=== PATIENT | female | born 1960 | race Caucasian/White ===

== ENCOUNTER 2023-03-07 06:31 | Outpatient (CLI) | payer MEDICARE, SELFPAY ==
[2023-03-07 07:39] LABS: Anion Gap 3 mmol/L (8-16); Blood Urea Nitrogen 11 mg/dL (7-17); Calcium 8.2 mg/dL (8.4-10.2); Carbon Dioxide 31 mmol/L (22-30); Chloride 107 mmol/L (98-107); Cholesterol 199 mg/dL (0-200); Estimated Glomerular Filt Rate > 60; Glucose 99 mg/dL (65-110); HDL Direct 52 mg/dL; Potassium 3.3 mmol/L (3.4-5.0); Sodium 141 mmol/L (137-145); Triglycerides 144 mg/dL (<150)
[2023-03-07 07:49] LABS: LDL Cholesterol Direct 121 mg/dL
== END 2023-03-07 06:32 | disposition home or self-care (01) ==
PROVIDERS: PCP Family Medicine; Visit Provider Family Medicine
DX: I12.9 Hypertensive chronic kidney disease with stage 1 through stage 4 chronic kidney disease, or unspecified chronic kidney disease (principal); N18.2 Chronic kidney disease, stage 2 (mild); E03.9 Hypothyroidism, unspecified; E78.2 Mixed hyperlipidemia
CPT/HCPCS: 36415; 80048; 80061; 84443

== ENCOUNTER 2023-09-11 13:42 | Observation (INO) | payer MEDICARE, SELFPAY ==
--- NOTE | ~2023-09-11 | XR_ITS ---
EXAMINATION: XR chest 1V portable Exam Date/Time: 09/11/2023 19:30 MATERIAL COMBINER HISTORY: cough, vomiting, covid SAID SHE IS HEAVY SMOKER Comparison: None. RESULT: Lines, tubes, and devices: None. Lungs and pleura: Streaky right basilar opacities with minimal right costophrenic angle blunting. Cardiomediastinal silhouette: Unremarkable. Other: No acute osseous or upper abdominal finding. IMPRESSION: Right basilar atelectasis/consolidation. Possible small right pleural effusion. Reviewed, dictated and finalized at location K. [facility]IAL COM[facility]ER
[2023-09-11 13:46] VITALS: BP 148/94; PULSE 117; RESP 20; TEMP 36.7; O2SAT 100
--- NOTE | 2023-09-11 13:51 | ED.NAVMDI ---
HPI - Nausea/Vomiting/Diarrhea General Chief complaint: Nausea/Vomiting/Diarrhea <Ana Laura Jarvis PA-C - Last Filed: 09/12/23 09:23> Stated complaint: vomiting <JUAN MANUEL Mariscal Last Filed: 09/12/23 09:23> Time Seen by Provider: 09/11/23 17:06 <JUAN MANUEL Mariscal Last Filed: 09/12/23 09:23> Source: patient <JUAN MANUEL Mariscal Last Filed: 09/12/23 09:23> Mode of arrival: ambulatory <JUAN MANUEL Mariscal Last Filed: 09/12/23 09:23> Limitations: no limitations <JUAN MANUEL Mariscal Last Filed: 09/12/23 09:23> History of Present Illness HPI Narrative: This is a 63-year-old female that presents to the emergency department for nausea and vomiting. Ongoing over the last several weeks. Reports she has not been able to keep much down. Also reports a headache this morning. She tried to take pain medication but ended up vomiting. Denies focal numbness or weakness. <JUAN MANUEL Mariscal Last Filed: 09/12/23 09:23> This is a 63-year-old female that presents to the emergency department for nausea and vomiting. Ongoing over the last several weeks. Reports she has not been able to keep much down. Also reports a headache this morning. She tried to take pain medication but ended up vomiting. Denies focal numbness or weakness. Sx's worsening over last 3 days. Also reports cough and congestion for last 3 weeks. Currently c/o burning pain in her esophagus. Denies fevers, sob, diarrhea, abdominal pain. Has seen her PCP for this over the last several weeks, but did not have any lab or imaging performed. <JUAN MANUEL Serrano Last Filed: 09/11/23 20:20> Related Data Home medications: Home Medications Medication Instructions Recorded Confirmed atorvastatin 20 mg tablet 40 mg PO DAILY 09/11/23 09/11/23 levothyroxine 75 mcg tablet 75 mcg PO QAM 09/11/23 09/11/23 sertraline 100 mg tablet 100 mg PO HS 09/11/23 09/11/23 <Ana Laura Jarvis PA-C - Last Filed: 09/12/23 09:23> Allergies/Adverse reactions: Allergies Allergy/AdvReac Type Severity Reaction Status Date / Time No Known Allergies Allergy Verified 09/11/23 17:20 <Ana Laura Jarvis PA-C - Last Filed: 09/12/23 09:23> Review of Systems Review of Systems: CONSTITUTIONAL: Denies fever EYES: Denies visual changes GASTROINTESTINAL: Reports abdominal pain, nausea, vomiting. Denies diarrhea. NEUROLOGIC: Reports headache. Denies numbness, or weakness. <Ana Laura Jarvis PA-C - Last Filed: 09/12/23 09:23> CONSTITUTIONAL: Denies fever EYES: Denies visual changes GASTROINTESTINAL: Reports nausea, vomiting. Denies diarrhea. NEUROLOGIC: Reports headache. Denies numbness, or weakness. <Nani Frias PA-C - Last Filed: 09/11/23 20:20> All systems reviewed & are unremarkable except as noted in HPI and below <Ana Laura Jarvis PA-C - Last Filed: 09/12/23 09:23> FOR[facility]LY [facility], [facility] Past Medical History Medical History: Medical History History of hyperlipidemia History of hypertension History of hypothyroidism <Ana Laura Jarvis PA-C - Last Filed: 09/12/23 09:23> Social History Social History: Social History Smoking packs per day: 2 Smoking cigarettes per day: 40.0 Smoking status: Current every day smoker Tobacco type: cigarettes Additional smoking assessment comments: 2-3 packs a day Alcohol intake: former Substance use: never Do You Feel Safe in your Home?: Yes Lack of Transportation: No Lack of Food: Never True Current Housing: I Have Housing Concerned About Future Housing: No Difficulty Paying Gas/Electric Bills: No Difficulty Paying for Meds: No Currently Unemployed: No Education: High School Diploma/GED Difficulty w/ Childcare or Family Care: No Spiritual care concerns: No <Ana Laura Jarvis PA-C - Last Filed: 09/12/23
[2023-09-11 14:10] LABS: Basophils Percent Auto 0.5 % (0.2-1.2); Hematocrit 42.5 % (37.0-47.0); Hemoglobin 14.7 g/dL (12.0-15.0); Immature Granulocyte Absolute 0.02 K/mm3 (0.00-0.031); Immature Granulocyte Percent A 0.4 % (0-0.5); Lymphocytes Absolute Auto 0.76 K/mm3 (0.9-3.2); Lymphocytes Percent Auto 13.8 % (18.3-44.2); Mean Corpuscular HGB Conc 34.6 g/dl (32-36); Mean Corpuscular Hemoglobin 30.8 pg (26-34); Mean Corpuscular Volume 89.1 fl (80-100); Mean Platelet Volume 10.6 fl (7.4-10.4); Monocytes Absolute Auto 0.7 K/mm3 (0.1-0.6); Neutrophils Percent Auto 73.3 % (45.5-73.1); Platelet Count Result 263 k/mm3 (150-375); Red Blood Count 4.77 M/mm3 (4.2-5.4); Red Cell Distribution Width 12.9 % (11.5-14.5); White Blood Count 5.5 K/mm3 (4.5-10.0)
[2023-09-11 14:24] LABS: Albumin Level 4.7 g/dL (3.5-5.1); Alkaline Phosphatase 135 U/L (38-126); Anion Gap 14 mmol/L (8-16); Aspartate Amino Transferase 51 U/L (14-36); Blood Urea Nitrogen 11 mg/dL (7-17); Calcium 8.9 mg/dL (8.4-10.2); Carbon Dioxide 24 mmol/L (22-30); Chloride 84 mmol/L (98-107); Estimated CRCL calculation 53 ml/min; Estimated Glomerular Filt Rate > 60; Glucose 103 mg/dL (65-110); Lipase 154 U/L (23-300); Potassium 3.9 mmol/L (3.4-5.0); Sodium 122 mmol/L (137-145)
[2023-09-11 14:31] LABS: Appearance Urine Cloudy (Clear); Bacteria Urine Rare /hpf; Bilirubin Urine Negative (Negative); Blood Urine Negative (Negative); Color Urine Yellow (Yellow); Glucose Urine UA Negative (Negative); Ketones Urine 2+ mg/dL (Negative); Leukocyte Esterase Ur Negative LEU/UL (Negative); Nitrate Urine Negative (Negative); Protein Urine Trace mg/dL (Negative); RBC Urine 0-2 /hpf (0-2); Specific Grav Ur 1.023 (1.001-1.035); Squamous Epithelial Cell Urine Moderate /hpf (Few); pH Urine 5.5 (5.0-9.0)
[2023-09-11 14:35] LABS: Alanine Aminotransferase 43 U/L (6-35)
[2023-09-11 14:39] LABS: Add Urine Microscopic? YES
[2023-09-11 15:40] LABS: Influenza A QL RT-PCR Negative (Negative); Influenza B QL RT-PCR Negative (Negative); SARS-CoV-2 RNA PCR Positive (Negative)
[2023-09-11 17:20] LABS: Magnesium 1.7 mg/dL (1.6-2.3)
[2023-09-11] MEDS: SODIUM CHLORIDE 0.9% IV 1,000 ML 999 ML IV CONT ×2 (17:21→19:29)
[2023-09-11 17:23] VITALS: BP 134/70; PULSE 77; RESP 14; O2SAT 100
[2023-09-11] MEDS: ONDANSETRON INJ 4 MG/2 ML VIAL IV PUSH (18:19)
[2023-09-11 18:23] VITALS: BP 128/63; PULSE 74; RESP 18; O2SAT 97
--- NOTE | 2023-09-11 18:53 | ECG_ITS ---
Measurements Intervals [place] Rate: 73 P: 64 WV: 150 QRS: -25 QRSD: 98 T: 43 QT: 404 QTc: 446 Interpretive Statements SINUS RHYTHM NONSPECIFIC T-WAVE ABNORMALITY LEFT AXIS DEVIATION ABNORMAL ECG NO PREVIOUS ECG AVAILABLE FOR COMPARISON Electronically Signed On 09-12-2023 10:35:52 [employer] by Osvaldo Bingham M.D.
[2023-09-11] MEDS: FAMOTIDINE 20 MG/2 ML VIAL IV PUSH (19:01)
[2023-09-11 19:05] LABS: Creatine Kinase 38 U/L (30-135)
[2023-09-11 19:18] LABS: Troponin I < 0.012 ng/mL (0.000-0.034)
[2023-09-11 20:17] VITALS: BP 147/77; PULSE 75; RESP 16; O2SAT 97
--- NOTE | 2023-09-11 20:24 | PM.IMHP ---
H&P: HPI History of Present Illness Date/Time: 09/11/23 20:24 Chief Complaint: Nausea and vomiting/unable to keep food and drink down for over 1 month Narrative: ?A 63-year-old female that presents to the emergency department for nausea and vomiting.? Ongoing over the last several weeks.? Reports she has not been able to keep much down.? Also reports a headache this morning.? She tried to take pain medication but ended up vomiting.? Denies focal numbness or weakness.Sx's worsening over last 3 days. Also reports cough and congestion for last 3 weeks. Currently c/o burning pain in her esophagus. Denies fevers, sob, diarrhea, abdominal pain. Has seen her PCP for this over the last several weeks, but did not have any lab or imaging performed. Patient was evaluated in the ER and found to have sodium level of 122, and also COVID-19 infection. She is not hypoxic, does not have shortness of breath, and improved significantly with IV hydration. I was consulted to admit this patient for observation considering low level of sodium. During my encounter with this patient she feels so much better, has not had any vomiting since arrival to the ED and also stated that body pain has improved significantly Review of Systems Review of Systems: All systems reviewed & are unremarkable except as noted in HPI and below PMFSH Past Medical History Medical History History of hyperlipidemia History of hypertension History of hypothyroidism Social History Social History Smoking status: Current every day smoker Meds Home Medications and Allergies Allergies Allergy/AdvReac Type Severity Reaction Status Date / Time No Known Allergies Allergy Verified 09/11/23 17:20 Vital Signs Vital Signs - 24 hr 09/11/23 13:46 09/11/23 17:23 09/11/23 18:23 Temperature 98.0 F Pulse Rate 117 H 77 74 Respiratory Rate 20 14 18 Blood Pressure 148/94 H 134/70 128/63 Pulse Oximetry 100 100 97 Oxygen Delivery Room Air 09/11/23 20:17 Temperature Pulse Rate 75 Respiratory Rate 16 Blood Pressure 147/77 H Pulse Oximetry 97 Oxygen Delivery Exam Narrative: GENERAL: Well-appearing, well-nourished,?not in distress HEAD: Normocephalic, atraumatic. ENT: EOMI, dry oral mucosa, CHEST: Clear to auscultation. No respiratory distress. No wheezes rales or rhonchi HEART: Regular rate and rhythm. No murmur heard. Normal peripheral pulses. ABDOMEN: Soft, nontender, nondistended, normal active bowel sounds.? No focal tenderness on abdomen. EXTREMITIES: Normal range of motion. No edema. SKIN: Warm, dry, no rash. NEURO: No focal deficits. Alert and oriented x3. Normal gait PSYCH: Normal mood and affect H&P: Results Labs Labs: Short CBC 09/11/23 Range/Units 13:59 WBC 5.5 (4.5-10.0) K/mm3 Hgb 14.7 (12.0-15.0) g/dL Hct 42.5 (37.0-47.0) % Plt Count 263 (150-375) k/mm3 BMP 09/11/23 13:59 Sodium 122 L Potassium 3.9 Chloride 84 L Carbon Dioxide 24 BUN 11 Creatinine 0.90 Glucose 103 Calcium 8.9 Cardiac Enzymes 09/11/23 Range/Units 13:59 Total Creatine Kinase 38 (30-135) U/L Troponin I < 0.012 (0.000-0.034) ng/mL Liver Function 09/11/23 Range/Units 13:59 Total Bilirubin 1.0 (0.2-1.3) mg/dL AST 51 H (14-36) U/L ALT 43 H (6-35) U/L Alkaline Phosphatase 135 H (38-126) U/L Albumin 4.7 (3.5-5.1) g/dL Urine 09/11/23 Range/Units 14:06 Urine Color Yellow (Yellow) Urine Appearance Cloudy H (Clear) Urine pH 5.5 (5.0-9.0) Ur Specific Bernard 1.023 (1.001-1.035) Urine Protein Trace (Negative) mg/dL Urine Glucose (UA) Negative (Negative) mg/dL ECG Interpretation: Normal sinus rhythm, regular rate, normal NH, left axis deviation, normal QRS, QT/QTC Imaging Chest x-ray: Radiologist's impression: PRESSION: Right basi
[2023-09-11 20:26] VITALS: BP 149/79; PULSE 84; RESP 20; O2SAT 98
[2023-09-11 20:31] LABS: Anion Gap 5 mmol/L (8-16); Blood Urea Nitrogen 10 mg/dL (7-17); Calcium 7.2 mg/dL (8.4-10.2); Carbon Dioxide 23 mmol/L (22-30); Chloride 96 mmol/L (98-107); Estimated CRCL calculation 67 ml/min; Estimated Glomerular Filt Rate > 60; Glucose 78 mg/dL (65-110); Potassium 4.1 mmol/L (3.4-5.0); Sodium 124 mmol/L (137-145)
[2023-09-11] MEDS: SODIUM CHLORIDE 0.9% IV 1,000 ML 150 ML IV CONT (20:48)
--- NOTE | 2023-09-11 22:31 | ADMGEN ---
This patient, Trupti Quinones, was admitted to [address] [facility] Surg Room 313-01. Patient/family oriented to hospital policies and general routines including ID bracelet, bed and alarms, visiting hours, pain management, procedures, bathroom and other care routines, personal items, smoking policy, room service/diet, and visiting hours. Information on how to activate the Rapid Response Team has been discussed. Patient/Family are encouraged to report perceived risks to care and to ask questions if they do not understand what they are told or what they should do.
[2023-09-11 23:17] LABS: Basophils Percent Auto 0.3 % (0.2-1.2); Hematocrit 36.7 % (37.0-47.0); Hemoglobin 12.3 g/dL (12.0-15.0); Immature Granulocyte Absolute 0.01 K/mm3 (0.00-0.031); Immature Granulocyte Percent A 0.3 % (0-0.5); Lymphocytes Absolute Auto 0.84 K/mm3 (0.9-3.2); Lymphocytes Percent Auto 21.9 % (18.3-44.2); Mean Corpuscular HGB Conc 33.5 g/dl (32-36); Mean Corpuscular Hemoglobin 30.8 pg (26-34); Mean Platelet Volume 10.8 fl (7.4-10.4); Monocytes Absolute Auto 0.5 K/mm3 (0.1-0.6); Neutrophils Absolute Auto 2.5 K/mm3 (1.3-6.7); Neutrophils Percent Auto 65.5 % (45.5-73.1); Platelet Count Result 219 k/mm3 (150-375); Red Blood Count 3.99 M/mm3 (4.2-5.4); Red Cell Distribution Width 12.9 % (11.5-14.5); White Blood Count 3.8 K/mm3 (4.5-10.0)
[2023-09-12] MEDS: SERTRALINE HCL 50 MG TABLET 100 MG PO ×2 (02:05→21:14)
[2023-09-12] MEDS: LEVOTHYROXINE SODIUM 75 MCG TABLET PO (05:54)
[2023-09-12] MEDS: SODIUM CHLORIDE 0.9% IV 1,000 ML 150 ML IV CONT ×3 (05:55→21:14)
[2023-09-12 06:00] VITALS: BP 139/82; PULSE 80; RESP 20; TEMP 36.6; O2SAT 99
[2023-09-12] MEDS: FAMOTIDINE 20 MG/2 ML VIAL IV PUSH ×2 (08:21→21:14)
[2023-09-12] MEDS: ENOXAPARIN 40 MG/0.4 ML SYRINGE SUB-Q (08:21)
[2023-09-12] MEDS: ATORVASTATIN 40 MG TABLET PO (08:22)
[2023-09-12] MEDS: lisinopriL 10 MG TABLET PO (08:22)
[2023-09-12] MEDS: hydroCHLOROthiazide 12.5 MG CAPSULE PO (08:22)
[2023-09-12 14:00] VITALS: BP 138/75; PULSE 69; RESP 18; TEMP 37; O2SAT 98
--- NOTE | 2023-09-12 15:48 | PM.IMPN ---
Progress Note: A&P Assessment and Plan (1) Dehydration: Code(s): E86.0 - Dehydration Status: Acute (2) Acute COVID-19: Code(s): U07.1 - COVID-19 Status: Acute (3) Viral gastroenteritis: Code(s): A08.4 - Viral intestinal infection, unspecified Status: Acute (4) Acute hyponatremia: Code(s): E87.1 - Hypo-osmolality and hyponatremia Status: Acute (5) Nausea and vomiting: Qualifiers: Vomiting type: unspecified Qualified Code(s): R11.2 - Nausea with vomiting, unspecified Code(s): R11.2 - Nausea with vomiting, unspecified Status: Acute (6) Hyponatremia: Code(s): E87.1 - Hypo-osmolality and hyponatremia Status: Acute (7) COVID-19: Code(s): U07.1 - COVID-19 Status: Acute Plan Admit patient to medical unit under full inpatient status COVID-19 isolation precautions Admitting resident care provider note said patient may be started on IV remdesivir which was not done in the ER Patient is clinically stable and not requiring oxygen hence do not qualify for dexamethasone or remdesivir Patient started on supplemental treatment with zinc, vitamin-C and vitamin-D She had moderately severe hyponatremia at 122 which is slowly improving with aggressive IV hydration Cut down on normal saline from 150-100 cc/hour Hold off on home diuretic Strict input and output monitoring Renal functions are stable Consider close monitoring of D-dimer and CRP as COVID-19 monitoring markers as needed Advised patient to relax, calm down and take things 1 at a time Consider oral anti anxiety meds if needed PT OT evaluation and treatment ordered DC planning in next 24-48 hours if she remains stable and electrolytes are improved ? Patient seen and examined at bedside during my morning rounds ? Collaborated with patient's nurse at the bedside in detail and addressed all concerns ? Labs, electrolytes, radiology, investigations and test results reviewed ? Consult/Nursing/Ancilliary notes on the chart reviewed and appreciated ? Spoke with patient/family at the bedside and answered all the questions that they had Repeat labs in a.m. Electrolyte replacement as per protocol. Patient will be monitored very closely on the floor. Further recommendations as per the hospital course. I am signing off. Patient's medical care will be taken over by my covering hospitalist attending in am. Time Spent With Patient Time with patient: 25 - 35 minutes Subjective Date/time seen: 09/12/23 15:48 Interval history: Patient seen and evaluated at bedside. Still feels tired and fatigued. Complaints of of poor intake over the last few weeks. Nausea vomiting has improved. She has anxiety Review of Systems Review of Systems: 14 systems were reviewed with pertinent positives and negatives per HPI. Except as documented in the HPI/progress notes, all other systems were reviewed and are negative. All systems reviewed & are unremarkable except as noted in HPI and below Exam Narrative: PHYSICAL EXAMINATION: Vital signs: Please see the chart General physical exam: Patient lying in bed, appears anxious, tired and fatigued Head/eyes: Atraumatic, EOMI, PERRLA ENT: +dry mucous membranes, nasal passages clear Neck: Supple, full range of motion, trachea midline CVS: S1 + S2, regular rate and rhythm, no murmurs Respiratory: Bilaterally fair air entry in both lung garcia, mild B/L crackles, symmetric chest expansion, no distress Abdomen: Soft, non-tender, bowel sounds +ve, no organomegaly Extremities: No clubbing, no cyanosis, no edema, no calf tenderness Musculoskeletal: Moves all, adequate range of motion, no muscle spasms Skin: Warm, dry, no jaundice, no cyanosis Neurological: Awake, alert, oriented x 3, cranial nerves II-XII intact, no focal neurological deficits Psychiatric: +anxious mood, non suicidal Objective Data Vital Signs Vital Signs: Vital Signs - 24 hr 09/11/23 17:23 09/11/23
[2023-09-12 21:05] VITALS: BP 106/69; PULSE 75; RESP 16; TEMP 36.4; O2SAT 97
[2023-09-13 04:53] VITALS: BP 130/76; PULSE 85; RESP 16; TEMP 36.3; O2SAT 96
[2023-09-13] MEDS: LEVOTHYROXINE SODIUM 75 MCG TABLET PO (06:15)
[2023-09-13 07:46] LABS: Basophils Percent Auto 0.5 % (0.2-1.2); Eosinophils Percent Auto 0.3 % (0-4.4); Hematocrit 34.8 % (37.0-47.0); Hemoglobin 11.3 g/dL (12.0-15.0); Immature Granulocyte Absolute 0.01 K/mm3 (0.00-0.031); Immature Granulocyte Percent A 0.3 % (0-0.5); Lymphocytes Percent Auto 27.7 % (18.3-44.2); Mean Corpuscular HGB Conc 32.5 g/dl (32-36); Mean Corpuscular Hemoglobin 30.6 pg (26-34); Mean Corpuscular Volume 94.3 fl (80-100); Mean Platelet Volume 11.1 fl (7.4-10.4); Monocytes Absolute Auto 0.5 K/mm3 (0.1-0.6); Monocytes Percent Auto 12.3 % (2.6-8.5); Neutrophils Absolute Auto 2.3 K/mm3 (1.3-6.7); Neutrophils Percent Auto 58.9 % (45.5-73.1); Platelet Count Result 229 k/mm3 (150-375); Red Blood Count 3.69 M/mm3 (4.2-5.4); Red Cell Distribution Width 13.7 % (11.5-14.5)
[2023-09-13 07:51] LABS: Anion Gap 4 mmol/L (8-16); Blood Urea Nitrogen 4 mg/dL (7-17); Calcium 7.5 mg/dL (8.4-10.2); Carbon Dioxide 24 mmol/L (22-30); Chloride 109 mmol/L (98-107); Estimated CRCL calculation 67 ml/min; Estimated Glomerular Filt Rate > 60; Glucose 123 mg/dL (65-110); Magnesium 1.9 mg/dL (1.6-2.3); Phosphorus 2.5 mg/dL (2.5-4.5); Potassium 3.9 mmol/L (3.4-5.0); Sodium 137 mmol/L (137-145)
--- NOTE | 2023-09-13 08:33 | PM.IMPN ---
Progress Note: A&P Assessment and Plan (1) Dehydration: Code(s): E86.0 - Dehydration Status: Acute (2) Acute COVID-19: Code(s): U07.1 - COVID-19 Status: Acute (3) Viral gastroenteritis: Code(s): A08.4 - Viral intestinal infection, unspecified Status: Acute (4) Acute hyponatremia: Code(s): E87.1 - Hypo-osmolality and hyponatremia Status: Acute (5) Nausea and vomiting: Qualifiers: Vomiting type: unspecified Qualified Code(s): R11.2 - Nausea with vomiting, unspecified Code(s): R11.2 - Nausea with vomiting, unspecified Status: Acute (6) Hyponatremia: Code(s): E87.1 - Hypo-osmolality and hyponatremia Status: Acute (7) COVID-19: Code(s): U07.1 - COVID-19 Status: Acute Plan Admit patient to medical unit under full inpatient status COVID-19 infection not requiring oxygen not qualify for remdesivir Patient started on supplemental treatment with zinc, vitamin-C and vitamin-D add dexamethasone 6 mg daily p.o. Hyponatremia She had moderately severe hyponatremia at 122 Corrected with aggressive IV hydration Received normal saline from 150-100 cc/hour Hold off on home diuretic Strict input and output monitoring Renal functions are stable Hyponatremia corrected DC normal saline IV Consider close monitoring of D-dimer and CRP as COVID-19 monitoring markers as needed Advised patient to relax, calm down and take things 1 at a time Consider oral anti anxiety meds if needed PT OT evaluation and treatment ordered Anxiety Possible due to typical withdrawal Provide nicotine patch, and Xanax p.o. as needed DC planning in next 24-48 hours if she remains stable and electrolytes are improved Subjective Date/time seen: 09/13/23 08:34 Interval history: Patient seen and evaluated at bedside. Patient feels better today still has a cough, nausea vomiting has improved. She has anxiety Exam Narrative: PHYSICAL EXAMINATION: Vital signs: Please see the chart General physical exam: Patient lying in bed, appears anxious, tired and fatigued Head/eyes: Atraumatic, EOMI, PERRLA ENT: +dry mucous membranes, nasal passages clear Neck: Supple, full range of motion, trachea midline CVS: S1 + S2, regular rate and rhythm, no murmurs Respiratory: Bilaterally fair air entry in both lung garcia, mild B/L crackles, symmetric chest expansion, no distress Abdomen: Soft, non-tender, bowel sounds +ve, no organomegaly Extremities: No clubbing, no cyanosis, no edema, no calf tenderness Musculoskeletal: Moves all, adequate range of motion, no muscle spasms Skin: Warm, dry, no jaundice, no cyanosis Neurological: Awake, alert, oriented x 3, cranial nerves II-XII intact, no focal neurological deficits Psychiatric: +anxious mood, non suicidal Objective Data Vital Signs Vital Signs: Vital Signs - 24 hr 09/12/23 14:00 09/12/23 21:05 09/12/23 20:00 Temperature 98.6 F 97.5 F L Pulse Rate 69 75 Respiratory Rate 18 16 Blood Pressure 138/75 106/69 Pulse Oximetry 98 97 Oxygen Delivery Room Air 09/13/23 04:53 Temperature 97.4 F L Pulse Rate 85 Respiratory Rate 16 Blood Pressure 130/76 Pulse Oximetry 96 Oxygen Delivery Intake/Output Intake/Output: Intake & Output 09/10/23 09/11/23 09/12/23 09/13/23 23:59 23:59 23:59 23:59 Intake Total 1999 4360 400 Balance 1999 4360 400 Meds/Results Medications: Active Medications Generic Name Dose Route Start Last Admin Trade Name Lorenzo PRN Reason Stop Dose Admin Acetaminophen 650 mg 09/11/23 19:59 Acetaminophen 325 Mg Tablet PO Q4H PRN Mild Pain (1-3) or Fever Atorvastatin Calcium 40 mg 09/12/23 09:00 09/12/23 08:22 Atorvastatin 40 Mg Tablet PO 40 mg DAILY CON Administration Enoxaparin Sodium 40 mg 09/12/23 09:00 09/12/23 08:21 Enoxaparin 40 Mg/0.4 Ml Syringe SUB-Q 40 mg DAILY CON Administration Famotidine 20 mg 09/12/23
[2023-09-13] MEDS: lisinopriL 10 MG TABLET PO (10:04)
[2023-09-13] MEDS: ATORVASTATIN 40 MG TABLET PO (10:04)
[2023-09-13] MEDS: ENOXAPARIN 40 MG/0.4 ML SYRINGE SUB-Q (10:05)
[2023-09-13] MEDS: FAMOTIDINE 20 MG/2 ML VIAL IV PUSH ×2 (10:06→21:06)
[2023-09-13 14:00] VITALS: BP 157/84; PULSE 73; RESP 18; TEMP 36; O2SAT 100
[2023-09-13] MEDS: SERTRALINE HCL 50 MG TABLET 100 MG PO (21:06)
[2023-09-13] MEDS: ALPRAZolam (*CRX) 0.5 MG TABLET PO (21:14)
[2023-09-13 22:00] VITALS: BP 170/82; PULSE 70; RESP 14; TEMP 36.2; O2SAT 100
[2023-09-14 06:00] VITALS: BP 125/88; PULSE 86; RESP 18; TEMP 36.3; O2SAT 96
[2023-09-14] MEDS: LEVOTHYROXINE SODIUM 75 MCG TABLET PO (06:10)
[2023-09-14 06:55] LABS: Basophils Percent Auto 0.5 % (0.2-1.2); Eosinophils Percent Auto 0.5 % (0-4.4); Hematocrit 38.3 % (37.0-47.0); Hemoglobin 12.4 g/dL (12.0-15.0); Immature Granulocyte Absolute 0.01 K/mm3 (0.00-0.031); Immature Granulocyte Percent A 0.2 % (0-0.5); Lymphocytes Percent Auto 36.6 % (18.3-44.2); Mean Corpuscular HGB Conc 32.4 g/dl (32-36); Mean Corpuscular Hemoglobin 30.8 pg (26-34); Mean Corpuscular Volume 95.3 fl (80-100); Mean Platelet Volume 10.7 fl (7.4-10.4); Monocytes Absolute Auto 0.4 K/mm3 (0.1-0.6); Monocytes Percent Auto 10.1 % (2.6-8.5); Neutrophils Absolute Auto 2.3 K/mm3 (1.3-6.7); Neutrophils Percent Auto 52.1 % (45.5-73.1); Platelet Count Result 244 k/mm3 (150-375); Red Blood Count 4.02 M/mm3 (4.2-5.4); Red Cell Distribution Width 13.8 % (11.5-14.5); White Blood Count 4.4 K/mm3 (4.5-10.0)
[2023-09-14 07:01] LABS: Anion Gap 6 mmol/L (8-16); Blood Urea Nitrogen 5 mg/dL (7-17); Calcium 8.2 mg/dL (8.4-10.2); Carbon Dioxide 23 mmol/L (22-30); Chloride 108 mmol/L (98-107); Estimated CRCL calculation 67 ml/min; Estimated Glomerular Filt Rate > 60; Glucose 93 mg/dL (65-110); Sodium 137 mmol/L (137-145)
--- NOTE | 2023-09-14 07:55 | PM.IMPN ---
Progress Note: A&P Assessment and Plan (1) Dehydration: Code(s): E86.0 - Dehydration Status: Acute (2) Acute COVID-19: Code(s): U07.1 - COVID-19 Status: Acute (3) Viral gastroenteritis: Code(s): A08.4 - Viral intestinal infection, unspecified Status: Acute (4) Acute hyponatremia: Code(s): E87.1 - Hypo-osmolality and hyponatremia Status: Acute (5) Nausea and vomiting: Qualifiers: Vomiting type: unspecified Qualified Code(s): R11.2 - Nausea with vomiting, unspecified Code(s): R11.2 - Nausea with vomiting, unspecified Status: Acute (6) Hyponatremia: Code(s): E87.1 - Hypo-osmolality and hyponatremia Status: Acute (7) COVID-19: Code(s): U07.1 - COVID-19 Status: Acute Plan Admit patient to medical unit under full inpatient status COVID-19 infection not requiring oxygen not qualify for remdesivir Patient started on supplemental treatment with zinc, vitamin-C and vitamin-D add dexamethasone 6 mg daily p.o. Hyponatremia She had moderately severe hyponatremia at 122 Corrected with aggressive IV hydration Received normal saline from 150-100 cc/hour Hold off on home diuretic Strict input and output monitoring Renal functions are stable Hyponatremia corrected DC normal saline IV Anxiety Possible due to typical withdrawal Provide nicotine patch, and Xanax p.o. as needed Subjective Date/time seen: 09/14/23 07:55 Interval history: Patient seen and evaluated at bedside. Patient feels better today, patient denies chest pain, shortness breast, nausea vomiting. Anxiety is well controlled.. Patient is afebrile, blood pressure stable, no O2 desaturation Exam Narrative: PHYSICAL EXAMINATION: Vital signs: Please see the chart General physical exam: Patient lying in bed, appears anxious, tired and fatigued Head/eyes: Atraumatic, EOMI, PERRLA ENT: Moist mucous membranes, nasal passages clear Neck: Supple, full range of motion, trachea midline CVS: S1 + S2, regular rate and rhythm, no murmurs Respiratory: Bilaterally fair air entry in both lung garcia, clear bilaterally Abdomen: Soft, non-tender, bowel sounds +ve, no organomegaly Extremities: No clubbing, no cyanosis, no edema, no calf tenderness Musculoskeletal: Moves all, adequate range of motion, no muscle spasms Skin: Warm, dry, no jaundice, no cyanosis Neurological: Awake, alert, oriented x 3, cranial nerves II-XII intact, no focal neurological deficits Psychiatric normal mood, non suicidal Objective Data Vital Signs Vital Signs: Vital Signs - 24 hr 09/13/23 10:00 09/13/23 11:10 09/13/23 14:00 Temperature 96.8 F L Pulse Rate 73 Respiratory Rate 18 Blood Pressure 157/84 H Pulse Oximetry 100 Oxygen Delivery Room Air Room Air 09/13/23 20:00 09/13/23 22:00 09/14/23 06:00 Temperature 97.2 F L 97.3 F L Pulse Rate 70 86 Respiratory Rate 14 18 Blood Pressure 170/82 H 125/88 Pulse Oximetry 100 96 Oxygen Delivery Room Air Intake/Output Intake/Output: Intake & Output 09/11/23 09/12/23 09/13/23 09/14/23 23:59 23:59 23:59 23:59 Intake Total 1999 4360 3100 550 Balance 1999 4360 3100 550 Meds/Results Medications: Active Medications Generic Name Dose Route Start Last Admin Trade Name Freq PRN Reason Stop Dose Admin Acetaminophen 650 mg 09/11/23 19:59 Acetaminophen 325 Mg Tablet PO Q4H PRN Mild Pain (1-3) or Fever Alprazolam 0.5 mg 09/13/23 13:07 09/13/23 21:14 Alprazolam (*Crx) 0.5 Mg Tablet PO 0.5 mg TID PRN Administration Anxiety Atorvastatin Calcium 40 mg 09/12/23 09:00 09/13/23 10:04 Atorvastatin 40 Mg Tablet PO 40 mg DAILY CON Administration Dexamethasone 6 mg 09/14/23 08:00 Dexamethasone 2 Mg Tablet PO 09/23/23 08:01 DAILY@0800 [facility] Enoxaparin Sodium 40 mg 09/12/23 09:00 09/13/23 10:05 Enoxaparin 40 Mg/0.4 Ml Syringe SUB-Q 40 mg
[2023-09-14] MEDS: DEXAMETHASONE 2 MG TABLET 6 MG PO (08:39)
[2023-09-14] MEDS: FAMOTIDINE 20 MG/2 ML VIAL IV PUSH (08:39)
[2023-09-14] MEDS: ENOXAPARIN 40 MG/0.4 ML SYRINGE SUB-Q (08:39)
[2023-09-14] MEDS: lisinopriL 10 MG TABLET PO (08:40)
[2023-09-14] MEDS: ATORVASTATIN 40 MG TABLET PO (08:40)
--- NOTE | 2023-09-14 11:03 | PM.DS ---
DS: Admitting Diagnosis Discharge Date 09/14/23 Admitting Diagnosis (1) Dehydration: ?Code(s): E86.0 - Dehydration ?Status:?Acute (2) Acute COVID-19: ?Code(s): U07.1 - COVID-19 ?Status:?Acute (3) Viral gastroenteritis: ?Code(s): A08.4 - Viral intestinal infection, unspecified ?Status:?Acute (4) Acute hyponatremia: ?Code(s): E87.1 - Hypo-osmolality and hyponatremia ?Status:?Acute (5) Nausea and vomiting: ?Qualifiers: ?Vomiting type:?unspecified? Qualified Code(s):?R11.2 - Nausea with vomiting, unspecified ?Code(s): R11.2 - Nausea with vomiting, unspecified ?Status:?Acute (6) Hyponatremia: ?Code(s): E87.1 - Hypo-osmolality and hyponatremia ?Status:?Acute (7) COVID-19: ?Code(s): U07.1 - COVID-19 ?Status:?Acute DS: Discharge Diagnosis Discharge Diagnosis (1) Dehydration: Code(s): E86.0 - Dehydration Status: Acute (2) Acute COVID-19: Code(s): U07.1 - COVID-19 Status: Acute (3) Viral gastroenteritis: Code(s): A08.4 - Viral intestinal infection, unspecified Status: Acute (4) Acute hyponatremia: Code(s): E87.1 - Hypo-osmolality and hyponatremia Status: Acute (5) Nausea and vomiting: Qualifiers: Vomiting type: unspecified Qualified Code(s): R11.2 - Nausea with vomiting, unspecified Code(s): R11.2 - Nausea with vomiting, unspecified Status: Acute (6) Hyponatremia: Code(s): E87.1 - Hypo-osmolality and hyponatremia Status: Acute (7) COVID-19: Code(s): U07.1 - COVID-19 Status: Acute DS: Summary Hospital Course Hospital Course: Per H&P, a 63-year-old female that presents to the emergency department for nausea and vomiting.? Ongoing over the last several weeks.? Reports she has not been able to keep much down.? Also reports a headache this morning.? She tried to take pain medication but ended up vomiting.? Denies focal numbness or weakness.Sx's worsening over last 3 days. Also reports cough and congestion for last 3 weeks. Currently c/o burning pain in her esophagus. Denies fevers, sob, diarrhea, abdominal pain. Has seen her PCP for this over the last several weeks, but did not have any lab or imaging performed.? Patient was evaluated in the ER and found to have sodium level of 122, and also COVID-19 infection.? She is not hypoxic, does not have shortness of breath, and improved significantly with IV hydration.? The following med issues have been addressed during hospitalization Admit patient to medical unit under full inpatient status COVID-19 infection not requiring oxygen not qualify for remdesivir Patient started on supplemental treatment with zinc, vitamin-C and vitamin-D Received dexamethasone 6 mg daily p.o. continue dexamethasone p.o. at discharge Hyponatremia She had moderately severe hyponatremia at 122 Corrected with aggressive IV hydration Received normal saline from 150-100 cc/hour Hold off on home diuretic Strict input and output monitoring Renal functions are stable Hyponatremia corrected DC normal saline IV Essential hypertension Discontinue lisinopril hydrochlorothiazide combo because of hyponatremia Start lisinopril 20 mg daily p.o. Patient needs to see primary care doctor in 1 week to adjust medication Anxiety Possible due to typical withdrawal of smoking Provide nicotine patch, and Xanax p.o. as needed Start Wellbutrin 150 mg daily p.o. Xanax 0.5 mg t.i.d. p.r.n. p.o. for anxiety and help stop smoking Patient needs to see primary care doctor in 1 week to chest medications Hypothyroidism Continue Synthroid 75 mcg daily p.o. Hyperlipidemia Continue Lipitor 20 mg daily p.o. Time Spent with Patient Time attestation: Total time spent providing and/or coordinating discharge services: Exam Narrative: Vital signs: Please see the chart General physical exam:? Patient lying in bed, appea
== END 2023-09-14 11:30 | disposition home or self-care (01) ==
LOC: ANHED 19:24 → ANH3MEDSUR 21:53
PROVIDERS: Physician Assistant; Admitting Provider Student in an Organized Health Care Education/Training Program; Emergency Provider Physician Assistant; PCP Family Medicine; Visit Provider Family Medicine
DX: E86.0 Dehydration (principal); U07.1 COVID-19; A08.4 Viral intestinal infection, unspecified; E87.1 Hypo-osmolality and hyponatremia; E78.5 Hyperlipidemia, unspecified; I10 Essential (primary) hypertension; E03.9 Hypothyroidism, unspecified; J98.11 Atelectasis; R94.31 Abnormal electrocardiogram [ECG] [EKG]; F17.210 Nicotine dependence, cigarettes, uncomplicated; Z79.899 Other long term (current) drug therapy
CPT/HCPCS: 36415; 71045; 80048; 80053; 81001; 82550; 83690; 83735; 84100; 84484; 85025; 87086; 87636; 93005; 96361; 96372; 96374; 96375; 97165; 99285; A9270; G0378; J1650; J2405; J7030; J8540